=== PATIENT | male | born 1960 | race Two or more races ===

== ENCOUNTER → 2019-10-27 | Outpatient (CLI) | payer OTHER ==
--- NOTE | 2019-10-27 10:20 | KCIC ---
LUMBAR SPINE WO CONTRAST Date: 10/27/2019 9:30 AM Indication: Low back pain. Comparison: None. Technique: Multi-planar multi-weighted magnetic resonance imaging of the lumbar spine was performed without intravenous contrast using the standard lumbar spine protocol. FINDINGS: Postsurgical changes of posterior decompression with posterior instrumentation and interbody spacer at L4-5. The lumbar spine is normally aligned. No acute fracture. Mild multilevel degenerative disc desiccation and disc height loss. No marrow replacing process to suggest malignancy. The conus terminates at a normal level. No abnormal signal is seen within the visualized distal spinal cord. No clumping of intrathecal nerve roots. No soft tissue abnormality in the visualized abdomen or pelvis. T12-L1: Disc bulge. No facet arthropathy. No significant spinal stenosis or neural foraminal narrowing. L1-L2: Disc bulge. Mild facet arthropathy. No significant spinal stenosis or neural foraminal narrowing. L2-L3: Disc bulge. Mild facet arthropathy. No significant spinal stenosis. Mild right neural foraminal narrowing. L3-L4: Disc bulge. Mild facet arthropathy. No significant spinal stenosis. Mild bilateral neural foraminal narrowing. L4-L5: Posterior decompression. Mild facet arthropathy. No significant spinal stenosis. Moderate neural foraminal narrowing. L5-S1: Disc bulge. Mild facet arthropathy. No significant spinal stenosis or neural foraminal narrowing. IMPRESSION: Mild to moderate lumbar spondylosis, as detailed above. Electronically signed by: Miki Yao MD (10/27/2019 10:17 AM) [id number]
== END | disposition home or self-care (01) ==
LOC: KCIC MRI 08:54
PROVIDERS: ATTEND Physician Assistant
DX: M47.816 Spondylosis without myelopathy or radiculopathy, lumbar region (principal); M51.27 Other intervertebral disc displacement, lumbosacral region; M51.24 Other intervertebral disc displacement, thoracic region; M12.88 Other specific arthropathies, not elsewhere classified, other specified site; Z98.1 Arthrodesis status; Z86.69 Personal history of other diseases of the nervous system and sense organs
CPT/HCPCS: 72148

== ENCOUNTER → 2019-11-15 | Outpatient (CLI) | payer OTHER ==
[~2019-11-15] MED LIST: GABA300C18 PO; IBUP200T44 PO; IOHEXOL 180 MG/ML 10 ML VIAL. ONE; METH-38 PO; methylPREDNISolone ACETATE 40 MG/ML VIAL. ONE; methylPREDNISolone ACETATE 80 MG/ML VIAL. ONE; protein powder
--- NOTE | 2019-11-15 15:53 | PAIN ---
DATE OF SERVICE: 11/15/2019 INITIAL CONSULTATION FOR PAIN CLINIC CHIEF COMPLAINT: Low back and right lower extremity pain. HISTORY OF PRESENT ILLNESS: This is a 59-year-old male who presents with a chief compliant of pain in the low back and right lower extremity for about 5 years. He underwent a lumbar diskectomy and fusion with interbody fusion in [place] in April 2019. The patient reports that the pain is not improved. He does have less tightness in his right lower extremity, but he still has significant pain across the low back into the right posterior gluteus, posterior lateral thigh, anterior thigh, posterior calf and anterior lower leg, worse with walking, standing, bending especially and working on his feet. 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 The patient reports the pain is constant, sharp, stabbing, throbbing, shooting with numbness and tingling in the right leg, worse with activity day and night, burning and cramping. The patient reports feet are burning more now since his surgery, he cannot walk long distances more than about 10-15 minutes. Gabapentin is helpful, but is not decreasing the pain more than about 20%. The patient reports he has tried Cymbalta, which makes it difficult for him to sleep and if he is still on, does not decrease his pain. The patient has not had any physical therapies, counseling, chiropractic treatment, or exercise since the surgery. The patient reports he has tried oxycodone in the past, Motrin as well does decrease the pain. Cymbalta was not helpful. The patient rates his disability rating from 0-10, 10 being the worst, is a 7 with family home responsibilities, 5 with recreation and social activity, 9 with occupational activities, 3 with sexual behavior and self-care, 5 with life support activity. The patient did have an MRI scan of the lumbar spine dated 10/27/2019 showing [id number] lumbar spondylosis, most noticeably at L4-5 with posterior decompression, no significant stenosis with moderate neural foraminal narrowing. L5-S1 shows no significant spinal stenosis or neural foraminal narrowing as well with some mild facet arthropathy throughout L1-L2 through L5-S1. 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 PAST MEDICAL HISTORY: Significant for hepatitis C, arthritis, lower extremity cramps, epistaxis. PREVIOUS SURGERY: Include a lumbar infection in 2014, which was on antibiotics for 2 months on an outpatient basis, also lumbar decompression fusion and interbody fusion in 2018 as well. CURRENT MEDICATIONS: Include gabapentin, Motrin, Robaxin, Cymbalta. ALLERGIES: The patient has no known drug allergies. FAMILY HISTORY: Significant for no major medical problems or conditions he is aware of. SOCIAL HISTORY: The patient does not drink alcohol, does not smoke, does not use any illegal, illicit or recreational drugs. 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 The patient was recently released from [facility] in [place] and reports he had previous narcotic addiction, which is where he was present for. REVIEW OF SYSTEMS: The patient's review of systems is positive for those items mentioned in history of present illness. All systems reviewed and otherwise negative. It is complete, full and well documented on the patient's chart. PHYSICAL EXAMINATION: VITAL SIGNS: The patient's blood pressure 144/85, pulse 72, respirations 16, temperature 97.5 degrees Fahrenheit, height is 5 feet 11 inches, weight is 232 pounds. GENERAL: The patient is awake, alert, oriented, appropriate, very pleasant demeanor. HEENT: Shows normocephalic, atraumatic. Extraocular movements are intact and symmetrical. Oral cavity: Mucous membranes moist and pink. Dentition is intact. NECK: Shows anterior throat supple without palpable lymphadenopathy noted. Swallow reflex symmetrical. CHEST: Shows normal on inspection. Breath sounds are clear to auscultation bilaterally. No rales, rhonchi or wheezes auscultated. HEART: Shows S1, S2 clear. No murmurs auscultated. ABDOMEN: Soft, nontender, nondistended. No palpable organomegaly is noted. No rebound or guarding demonstrated. No other abnormalities: BACK: Shows spine grossly in the midline, normal-appearing cervical lordotic curvature, thoracic kyphotic curvature and flattening of lumbar lordotic curvature with an extensive midline lumbar scar, which is well healed. Paraspinous musculature with inspection shows symmetrical in the lumbar distribution. With palpation, he has moderate tenderness diffusely mostly on the right side compared to the left in the lumbar distribution bilaterally. Again very firm musculature near the surgical scar, no specific tenderness over the spinous processes, sacrum or sacroiliac region. EXTREMITIES: The patient's lower extremities show deep tendon reflexes at 2+ in the patellar, 1+ tendo-calcaneus tendons. Motor exam is strong with 5/5 dorsiflexion, extension, quadriceps and hamstring flexion symmetrical without significant increase in pain. Peripheral pulses are 1+ in the posterior tibial and dorsalis pedis pulses. No peripheral edema is noted. Lower extremities are warm and dry to touch, equal in color and appearance. Straight leg raise noted to be mildly positive on the right, but only about 45 degrees, which is decreased completely with knee flexion. Left side is negative. Gaenslen's and Randy's maneuvers are negative bilaterally as well. The patient is able to stand, has no difficulty trying to stand on his toes with no loss of balance, does walk with a slight favoring gait, appears to favor the right lower extremity very mildly, not using any assistive device such as canes or walkers to ambulate. SKIN: Shows warm and dry, good turgor. No edema. No sores, rashes or bruising throughout. IMPRESSION: 1. This is a 59-year-old male with history of many year low back and lower extremity pain, status post lumbar decompressive surgery with fusion and interbody fusion on 04/2019 with persistent pain and radicular pain of the right lower extremity. 2. MRI scan of lumbar spine as noted. 3. History of arthritis. 4. History of hepatitis. PLAN: Options were discussed with the patient including conservative medical managements, continued physical therapies and interventional techniques and he would like to pursue interventional techniques as he has had no physical therapies that were helpful in the past. We will proceed with a lumbar epidural steroid injection. We described the procedure using description as well as anatomical models to describe the procedure as well. Risks were then discussed including, but not limited to bleeding, infection, possibility of epidural hematoma and subsequent neurological compromise, dural puncture, headaches, spinal cord and/or nerve damage, side effects of steroid medication and poor results regarding pain control. The patient understands and wished to proceed. The patient will return to clinic in approximately 2 weeks for followup, was counseled on return appointment, activity level and side effects to be aware of. DIAGNOSIS: Lumbar radiculopathy with lumbar degenerative disk disease and lumbar post-laminectomy syndrome. PROCEDURE: Lumbar epidural steroid injection, translaminar approach at the L5-S1 level using C-arm fluoroscopic guidance under sterile prep and drape using local anesthetic. MEDICATION INJECTED: A total of 120 mg Depo-Medrol plus 10 mL preservative-free normal saline and 2 mL of contrast. CONDITION AT DISCHARGE: Stable. The patient tolerated the procedure well, had no complications. JENY WOO MD DR: GWENDOLYN/marin JOB#: [id number] / [id number] NINO Shay
== END ==
LOC: PNCL 11:22
PROVIDERS: ATTEND Anesthesiology
DX: M51.16 Intervertebral disc disorders with radiculopathy, lumbar region (principal); M96.1 Postlaminectomy syndrome, not elsewhere classified; Z87.39 Personal history of other diseases of the musculoskeletal system and connective tissue; Z86.19 Personal history of other infectious and parasitic diseases
CPT/HCPCS: 62323; J1030; J1040; Q9965

== ENCOUNTER → 2019-11-30 | Outpatient (CLI) | payer OTHER ==
--- NOTE | 2019-11-30 11:50 | PAIN ---
DATE OF SERVICE: 11/30/2019 PROGRESS NOTE FOR PAIN CLINIC DIAGNOSES: Lumbar radiculopathy with lumbar degenerative disk disease and lumbar post-laminectomy syndrome. HISTORY OF PRESENT ILLNESS: The patient is a 59-year-old male who returns for followup status post lumbar epidural steroid injection x 1. The patient reports about 30-40% improvement in his low back and bilateral hip and lower extremity pain. 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 The patient reports after about 2 hours, he has to bend over or get down on one knee to relieve the pain in his back or to ease it. He has some pain in the bottom of the feet as well as the back, front of the thighs and hips, when standing, also in the posterior gluteus and posterior thighs bilaterally. The patient rates his pain as a 9 on a scale of 10 at all times, average, worst and its least and is a 9 today. The patient reports no new motor or sensory deficits, no new bowel or bladder incontinence. PHYSICAL EXAMINATION: VITAL SIGNS: The patient's blood pressure 145/100, pulse 48, respirations are 16, temperature 97.6 degrees Fahrenheit, weight is 229 pounds. GENERAL: The patient is awake, alert, oriented, appropriate, very pleasant demeanor. HEENT: Shows normocephalic, atraumatic. Extraocular movements are intact and symmetrical. Oral cavity shows mucous membranes are moist and pink. Dentition is intact. NECK: Shows anterior throat supple. CHEST: Shows normal on inspection. Breath sounds are clear bilaterally. No rales, rhonchi or wheezes. HEART: Shows S1, S2 clear. No murmurs auscultated. ABDOMEN: Soft, nontender, nondistended. BACK: Shows spine grossly in the midline. Normal appearing thoracic kyphosis and flattening of lumbar lordotic curvature with well-healed surgical scar noted in the lumbar distribution in the midline. Lumbar paraspinous muscle shows symmetrical on inspection, on palpation it is firm bilaterally throughout the upper, middle and lower distribution of paraspinous muscles, but only diffusely tender without significant radiation of pain. EXTREMITIES: The patient's lower extremities show deep tendon reflexes 2+ in the patellar, 1+ tendo-calcaneus tendons. Motor exam is strong with 5/5 dorsiflexion, extension, quadriceps and hamstring flexion symmetrical. Peripheral pulses are 1+ posterior tibia. No peripheral edema bilaterally. Options were discussed with the patient and the patient's old chart was reviewed as his current medication regimen updated. Current review of systems updated today as well. We will proceed with a second in a series of lumbar epidural steroid injection today with fluoroscopic guidance. Risks were again discussed including, but not limited to bleeding, infection, possibility of epidural hematoma, subsequent neurological compromise, dural puncture, headaches, spinal cord and/or nerve damage, side effects of steroid medication and poor results regarding pain control. The patient understands and wished to proceed. The patient will return to clinic in approximately 2 weeks for followup, was counseled on return appointment, activity level and side effects to be aware of. We discussed his previous surgery, which was done in [place], [place] by his report and how he reports he did not have any downtime after the surgery, was back on his feet, was working fairly quickly after this within a week or so, it is my opinion that they should have had about a week without any physical strenuous activities at all including standing or walking for more than 15-20 minutes, even as tolerated and also reports that he had no physical therapy after the surgery, which I feel should have been performed to help rehabilitation his back and legs after the surgery for at least 6 weeks. The patient has tried to do some physical therapy since that time, but the pain in his back has been limiting him from doing it again with an instrumented fusion in the lumbar spine. This, in my opinion, should have been done for about 6 weeks following his surgery initially. We discussed physical therapy and readdressing this. He is interested in doing this and we will make those arrangements as he requests, although cautioned him as to expectations with the physical therapy this far after his surgery and with his back pain is still fairly significant, we will reevaluate this after lumbar epidural steroid injection today. DIAGNOSES: Lumbar radiculopathy with lumbar degenerative disk disease and lumbar post-laminectomy syndrome. PROCEDURE: Lumbar epidural steroid injection, translaminar approach L5-S1 level using C-arm fluoroscopic guidance under sterile prep and drape using local anesthetic. MEDICATION INJECTED: A total of 120 mg of Depo-Medrol plus 10 mL of preservative-free normal saline and 2 mL of contrast. CONDITION AT DISCHARGE: Stable. The patient tolerated procedure well, had no complications. JENY WOO MD DR: GWENDOLYN/marin JOB#: [id number] / [id number]
== END ==
LOC: PNCL 11:03
PROVIDERS: ATTEND Anesthesiology
DX: M51.16 Intervertebral disc disorders with radiculopathy, lumbar region (principal); M96.1 Postlaminectomy syndrome, not elsewhere classified; Y83.8 Other surgical procedures as the cause of abnormal reaction of the patient, or of later complication, without mention of misadventure at the time of the procedure; M54.5 Low back pain; Z98.890 Other specified postprocedural states
CPT/HCPCS: 62323; J1030; J1040; Q9965

== ENCOUNTER → 2019-12-28 | Outpatient (CLI) | payer OTHER ==
--- NOTE | 2019-12-28 11:03 | PAIN ---
DATE OF SERVICE: 12/28/2019 PROGRESS NOTE FOR PAIN CLINIC DIAGNOSES: Lumbar radiculopathy with lumbar degenerative disk disease and lumbar post-laminectomy syndrome. HISTORY OF PRESENT ILLNESS: The patient is a 59-year-old male who returns for followup status post lumbar epidural steroid injection x 2. The patient reports about 40% improvement overall in the low back and bilateral lower extremity pain. The patient reports it is still worse on the right than the left, but present bilaterally. 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 The patient reports he still has some pain in his hips and his back, bottom of his feet, walking is hindered. The patient reports it is an 8 on a scale of 10 at its worst over the past week, average and at its least and is an 8 today. The patient describes the pain as aching and sharp, tingling, burning, cramping, shooting in the legs, constant in the low back and into the feet as well, on and off in intensity. The patient reports no new motor or sensory deficits, no bowel or bladder incontinence or other complaints. PHYSICAL EXAMINATION: VITAL SIGNS: The patient's blood pressure is 142/92, pulse 68, respirations are 16, temperature 97.4 degrees Fahrenheit, weight is 233 pounds. GENERAL: The patient is awake, alert, oriented, appropriate, very pleasant demeanor. HEENT: Shows normocephalic, atraumatic. Extraocular movements are intact and symmetrical. Oral cavity: Mucous membranes moist and pink. Dentition is intact. NECK: Shows anterior throat supple without palpable lymphadenopathy noted. Swallow reflex symmetrical. CHEST: Shows normal on inspection. Breath sounds are clear bilaterally. No rales, rhonchi or wheezes auscultated. ABDOMEN: Soft, nontender, nondistended. HEART: Shows S1, S2 clear. BACK: Shows spine grossly in the midline with well-healed surgical scar noted in the lumbar distribution with some flattening of lumbar lordotic curvature. Lumbar paraspinous muscle shows symmetrical with inspection, on palpation shows some moderate tenderness diffusely in the middle and lower distribution of paraspinous muscles, but only diffusely without significant radiation and without asymmetry. The patient has good rotational motion of the lumbar spine, both laterally as well as extension and flexion without difficulty. EXTREMITIES: Lower extremities show deep tendon reflexes at 2+ in the patellar, 1+ tendo-calcaneus tendons. Motor exam is strong with 5/5 dorsiflexion, extension, quadriceps and hamstring flexion and symmetrical. Peripheral pulses are 1+ posterior tibia. No peripheral edema is noted bilaterally. Options were discussed with the patient. The patient's old chart was reviewed as his current medication regimen updated. Current review of systems updated today as well. We will proceed with a third in the series of lumbar epidural steroid injection today with fluoroscopic guidance. Risks were again discussed including, but not limited to bleeding, infection, possibility of epidural hematoma, subsequent neurological compromise, dural puncture, headaches, spinal cord and/or nerve damage, side effects of steroid medication and poor results regarding pain control. The patient understands and wished to proceed. The patient will return to clinic in approximately 2 weeks for followup. He was counseled on return appointment, activity level and side effects to be aware of. DIAGNOSES: Lumbar radiculopathy with lumbar degenerative disk disease and lumbar post-laminectomy syndrome. PROCEDURE: Lumbar epidural steroid injection, translaminar approach L5-S1 level using C-arm fluoroscopic guidance under sterile prep and drape using local anesthetic. MEDICATION INJECTED: A total of 120 mg of Depo-Medrol plus 10 mL preservative-free normal saline and 2 mL of contrast. CONDITION AT DISCHARGE: Stable. The patient tolerated the procedure well, had no complications. JENY WOO MD DR: GWENDOLYN/marin JOB#: [id number] / [id number]
== END ==
LOC: PNCL 10:13
PROVIDERS: ATTEND Anesthesiology
DX: M51.16 Intervertebral disc disorders with radiculopathy, lumbar region (principal); M96.1 Postlaminectomy syndrome, not elsewhere classified
CPT/HCPCS: 62323; J1030; J1040; Q9965

== ENCOUNTER → 2020-05-08 | Outpatient (CLI) | payer OTHER ==
[~2020-05-08] MED LIST changes: -IOHEXOL 180 MG/ML 10 ML VIAL. ONE; -methylPREDNISolone ACETATE 40 MG/ML VIAL. ONE; -methylPREDNISolone ACETATE 80 MG/ML VIAL. ONE
--- NOTE | 2020-05-08 09:06 | PDOC ---
Progress Note - Pain Clinic Date of Service: DOS: DATE: 05/08/20 TIME: 09:01 Diagnosis: Dx: Lumbar radiculopathy with lumbar degenerative disease and lumbar postlaminectomy syndrome History or Present Illness: HPI: 60-year-old male returns follow-up status post lumbar epidurals or injections x3. Last seen December 28, 2019 patient reports he did very well about 70% improvement after the third injection but the pain returning down the low back and bilateral lower extremities right somewhat worse than the left with radiating pain the posterior gluteus posterior lateral thigh lateral anterior thighs posterior gluteus posterior calves again worse on the right side worse with walking standing changing positions better with sitting or laying down. Patient reports an 8 on scale 10 is worse over the past week 8 on average 6 at its least is 8 today. 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 Patient ports aching sharp tingling burning at times bottom of the feet have some burning as well especially on the right side. Patient reports no loss of motor function no bowel or bladder incontinence patient reports initially was doing much better with distance walking and doing work activities household activities with greater ease and comfort but the pain is returning now fairly significantly. Patient reports also when he was incarcerated shortly after his lumbar surgery he was forced to walk multiple stairs 14 stairs up and down the day to get his medications also multiple stairs to go to the mess [facility] to get food and back which is not brought to him nor his medications in his cell reports he was walking the stairs multiple times a day as early as 5 days following his surgery. Patient reports he was not given any formal physical therapy or formal instruction with physical therapy exercises to do after his surgery as well. We discussed this in some detail today and it is my opinion that he should have had very minimal physical activity following the surgery for at least 4 to 6 weeks with physical [facility] [employer] during that time as well which by his report did not occur. Physical Exam: VS: Blood pressure is 126/44 pulse 56 respirations 16 temperature 97.9 F height is 5 feet 11 inches weight is 224 pounds PE: PHYSICAL EXAMINATION: GENERAL: The patient is awake, alert, oriented, appropriate, very pleasant demeanor HEENT: Shows normocephalic, atraumatic. Extraocular movements are intact and symmetrical. Oral cavity: Mucous membranes moist and pink. NECK: Shows anterior throat supple without palpable lymphadenopathy noted. Swallow reflex symmetrical. CHEST: Shows normal on inspection. Breath sounds are clear bilaterally, no rales rhonchi wheezes auscultated. HEART: Shows S1, S2 clear. No murmurs auscultated. ABDOMEN: Soft, nontender, nondistended obese. No palpable organomegaly is noted. No rebound or guarding demonstrated. BACK: Shows spine grossly in the midline. Normal-appearing cervical lordotic curvature. There is slightly increased thoracic kyphosis, some minor flattening of the lumbar lordotic curvature. Lumbar paraspinous muscles show symmetrical on inspection, on palpation shows some moderate tenderness diffusely throughout the upper, middle and lower distribution of the paraspinous muscles bilaterally without specific trigger points, without radiation of pain. The patient has good rotational motion of the lumbar spine, both laterally as well as extension and flexion without significant difficulty. No tenderness over the spinous processes, sacrum or sacroiliac regions. EXTREMITIES: Lower extremities show deep tendon reflexes 2+ in the patellar and tendo calcaneus tendons. Motor exam is 5 on a scale of 5 with right dorsiflexion, extension, quadriceps and hamstring flexion and 5/5 on the left. Peripheral pulses are 1+ posterior tibial. No peripheral edema is noted bilaterally. Lower extremities are warm and dry to touch, equal in color and appearance. SKIN: Shows warm and dry, good turgor. No edema. No sores, rashes or bruising throughout. Procedure: Procedure: Options were discussed with the patient. Patient chart was reviewed his his current medication regimen updated current review of systems updated today as well. We will preauthorize patient for lumbar epidural steroid injection sympto ms well with these in the past with radicular pain bilateral in the L5-S1 dermatomal distribution greater on the right than the left. Meantime we will order physical therapy for stretching strength exercises as well as postural instruction and muscle massage and release techniques. Patient will follow up after preauthorization we will plan on lumbar epidurals or injection at that time translaminar approach at the L5-S1 level as he is done very well with these in the past. Medication Injected: Med Injected: None Condition at Discharge: Condition at Discharge: Condition at discharge is stable. JENY WOO MD May 08, 2020 09:06
== END | disposition home or self-care (01) ==
LOC: PNCL 08:24
PROVIDERS: ATTEND Anesthesiology
DX: M51.16 Intervertebral disc disorders with radiculopathy, lumbar region (principal); M96.1 Postlaminectomy syndrome, not elsewhere classified; Z79.899 Other long term (current) drug therapy
CPT/HCPCS: 99212; G0463

== ENCOUNTER → 2020-05-22 | Outpatient (CLI) | payer OTHER ==
[~2020-05-22] MED LIST changes: +IOHEXOL 180 MG/ML 10 ML VIAL. ONE; +methylPREDNISolone ACETATE 40 MG/ML VIAL. ONE; +methylPREDNISolone ACETATE 80 MG/ML VIAL. ONE
--- NOTE | 2020-05-22 08:36 | PDOC ---
Progress Note - Pain Clinic Date of Service: DOS: DATE: 05/22/20 TIME: 08:32 Diagnosis: Dx: Lumbar radiculopathy with lumbar degenerative disease and lumbar postlaminectomy syndrome History or Present Illness: HPI: 60-year-old male returns follow-up status post lumbar epidural steroid injections x3. Most recently December 28, 2019. Patient was waiting for physical therapy to begin as well as the authorization for additional epidural steroid injections he did very well with these in the past. Patient report about a 70% improvement after his last injection which was in December the pain returning down the low back and into the bilateral lower extremities. Patient ports pain low back bilateral posterior gluteus posterior thighs radiating with walking standing changing positions. Patient ports aching and stabbing tingling and burning in the feet as well bilaterally. Patient rates his pain as an 8 on scal e 10 is worst average and least is 8 on scale of 10 today. Patient reports no new motor or sensory deficits no new bowel or bladder incontinence or other complaints. Physical Exam: VS: Blood pressure is 117/73 pulse 54 respirations 18 temperature is 97.8 F height is 5 feet 11 inches weight is 225 pounds PE: PHYSICAL EXAMINATION: GENERAL: The patient is awake, alert, oriented, appropriate, very pleasant demeanor HEENT: Shows normocephalic, atraumatic. Extraocular movements are intact and symmetrical. NECK: Shows anterior throat supple without palpable lymphadenopathy noted. Swallow reflex symmetrical. CHEST:Normal on inspection. Breath sounds are clear bilaterally, no rales rhonchi or wheezes auscultated bilaterally. HEART: Shows S1, S2 clear. No murmurs auscultated. ABDOMEN: Soft, nontender, nondistended, obese. No palpable organomegaly is noted. No rebound or guarding demonstrated. BACK: Shows spine grossly in the midline. Normal-appearing cervical lordotic curvature. There is slightly increased thoracic kyphosis, some minor flattening of the lumbar lordotic curvature. Lumbar paraspinous muscles show symmetrical on inspection, with well-healed midline surgical scar, on palpation shows some m oderate tenderness diffusely throughout the upper, middle and lower distribution of the paraspinous muscles without specific trigger points, without radiation of pain. The patient has good rotational motion of the lumbar spine, both laterally as well as extension and flexion without significant difficulty. No tenderness over the spinous processes, sacrum or sacroiliac regions. EXTREMITIES: Lower extremities show deep tendon reflexes 2+ in the patellar and tendo calcaneus tendons. Motor exam is 5 on a scale of 5 with right dorsiflexion, extension, quadriceps and hamstring flexion and 5/5 on the left. Peripheral pulses are 1+ posterior tibial. No peripheral edema is noted bilaterally. Lower extremities are warm and dry to touch, equal in color and appearance. SKIN: Shows warm and dry, good turgor. No edema. No sores, rashes or bruising throughout. Procedure: Procedure: Options were discussed with the patient. Patient chart was reviewed his current medication regimen updated current review of systems updated today as well. We will proceed with a lumbar epidural steroid injection today with fluoroscopic guidance. Risks were discussed including but not limited to: Bleeding, infection, possibility of epidural hematoma and subsequent neurological compromise, dural puncture, headaches, spinal cord and/or nerve damage, side effects of steroid medication, and poor results regarding pain control. Patient understands wished to proceed. Patient will return to the clinic in approximate 2 weeks for follow-up, was counseled as to return appointment activity level and side effects to be aware of. Medication Injected: Med Injected: Procedure is lumbar epidural steroid injection under local anesthetic using sterile prep and drape at the L5-S1 level using C-arm fluoroscopic guidance in both AP and lateral views medications injected is 120 mg Depo-Medrol + 10 mL preservative-free normal saline and 2 mL contrast- condition at discharge is stable patient tolerated procedure well had no complications. Condition at Discharge: Condition at Discharge: Edition discharge is stable, patient tolerated procedure well and had no complications. JENY WOO MD May 22, 2020 08:36
== END | disposition home or self-care (01) ==
LOC: PNCL 07:53
PROVIDERS: ATTEND Anesthesiology
DX: M51.16 Intervertebral disc disorders with radiculopathy, lumbar region (principal); M96.1 Postlaminectomy syndrome, not elsewhere classified; Z79.899 Other long term (current) drug therapy
CPT/HCPCS: 62323; J1030; J1040; Q9965

== ENCOUNTER → 2020-10-13 | Outpatient (CLI) | payer OTHER ==
--- NOTE | 2020-10-13 08:29 | PDOC ---
Progress Note - Pain Clinic Date of Service: DOS: DATE: 10/13/20 TIME: 08:26 Diagnosis: Dx: Lumbar radiculopathy with lumbar degenerative disease and lumbar postlaminectomy syndrome History or Present Illness: HPI: 60-year-old male returns for follow-up after lumbar epidural steroid injection on May 22, 2020. Patient has been seen here since November 2019 with history of lumbar surgery with fusion at L4 and 5 with posterior decompression and instrumentation. Patient has received lumbar epidural steroid injections in November 2019 as well as December 2019 and then most recently May 2020 returns today for follow-up with pain returning in the low back and bilateral lower extremities patient reports about 70% improvement over the past 4 months after his last injection with pain is returning now is burning and numbness in the legs and feet as well as the back of the calves aching and sharp radiated from posterior gluteus and posterior thighs posterior calves also pain in the back itself at the site of the procedure from his previous fusion patient reports is on and off in intensity but cramping and stabbing in the back with radiating pain shooting and stabbing in the lower extremities as well patient reports is worse when standing walking changing position better with laying down but still wakes him from sleep occasionally patient reports cramping in the feet bilaterally as well. Patient rates his pain as a 9 on scale 10 is worst over the past week 8 on average 7 its least is an 8 today. Patient reports no new motor deficits no bowel or bladder incontinence. Physical Exam: VS: Blood pressure is 124/81 pulse 64 respirations 16 temperature 98.1 F weight is 216 pounds PE: PHYSICAL EXAMINATION: GENERAL: The patient is awake, alert, oriented, appropriate, very pleasant demeanor HEENT: Shows normocephalic, atraumatic. Extraocular movements are intact and sy mmetrical. Oral cavity: Mucous membranes moist and pink. Dentition is intact. NECK: Shows anterior throat supple without palpable lymphadenopathy noted. Swallow reflex symmetrical. CHEST: Shows normal on inspection. Breath sounds are clear bilaterally. HEART: Shows S1, S2 clear. No murmurs auscultated. ABDOMEN: Soft, nontender, nondistended. No palpable organomegaly is noted. No rebound or guarding demonstrated. BACK: Shows spine grossly in the midline. Normal-appearing cervical lordotic curvature. There is slightly increased thoracic kyphosis, some minor flattening of the lumbar lordotic curvature. Well-healed midline surgical scars noted. Lumbar paraspinous muscles show symmetrical on inspection, on palpation shows some moderate tenderness diffusely throughout the upper, middle and lower distribution of the paraspinous muscles without specific trigger points, without radiation of pain. The patient has good rotational motion of the lumbar spine, both laterally as well as extension and flexion without significant difficulty. EXTREMITIES: Lower extremities show deep tendon reflexes 2 in the patellar and tendo calcaneus tendons. Motor exam is 5 on a scale of 5 with right dorsiflexion, extension, quadriceps and hamstring flexion and 5/5 on the left. Peripheral pulses are 1+ posterior tibial. No peripheral edema is noted bilaterally. Lower extremities are warm and dry to touch, equal in color and appearance. SKIN: Shows warm and dry, good turgor. No edema. No sores, rashes or bruising throughout. Procedure: Procedure: Options discussed with the patient. Patient chart reviews his current medication regimen updated current review of systems updated today as well. We will proceed with a second in the series lumbar epidural steroid ejections today with fluoroscopic guidance. Risks were discussed including but not limited to: Bleeding, infection, possibility of epidural hematoma and subsequent neurological compromise, dural puncture, headaches, spinal cord and/or nerve damage, side effects of steroid medication, and poor results regarding pain control. Patient understands and wished to proceed. Patient return to clinic in approximately 4 weeks for follow-up, was counseled as return appointment activity level and side effects to be aware of. Medication Injected: Med Injected: Procedure is lumbar epidural steroid injection under local anesthetic using sterile prep and drape at the L5-S1 level using C-arm fluoroscopic guidance in both AP and lateral views medications injected is 120 mg Depo-Medrol + 10 mL preservative-free normal saline and 2 mL contrast- condition at discharge is stable patient tolerated procedure well had no complications. Condition at Discharge: Condition at Discharge: Condition at discharge stable, patient already procedure well and had no complications. Patient was given refill prescription for Motrin as well as Robaxin and gabapentin with instructions to follow-up with his primary care physician regarding any further medication prescriptions and/or adjustments. Patient understands. JENY WOO MD Oct 13, 2020 08:29
--- NOTE | 2020-10-13 08:30 | PDOC4 ---
PROCEDURE Procedure Patient is consented for lumbar epidural steroid injection. Risks were disc ussed including but not limited to: Bleeding, infection, possibility of epidural hematoma and subsequent neurological compromise, dural puncture, headaches, spinal cord and/or nerve damage, side effects of steroid medication, and poor results regarding pain control. Patient understands and wished to proceed. Procedure is lumbar epidural steroid injection under local anesthetic using sterile prep and drape at the L5-S1 level using C-arm fluoroscopic guidance in both AP and lateral views medications injected is 120 mg Depo-Medrol + 10 mL preservative-free normal saline and 2 mL contrast- condition at discharge is stable patient tolerated procedure well had no complications. JENY WOO MD Oct 13, 2020 08:30
== END | disposition home or self-care (01) ==
LOC: PNCL 07:37
PROVIDERS: ATTEND Anesthesiology
DX: M51.16 Intervertebral disc disorders with radiculopathy, lumbar region (principal); M96.1 Postlaminectomy syndrome, not elsewhere classified; Z79.899 Other long term (current) drug therapy
CPT/HCPCS: 62323; J1030; J1040; Q9965